=== PATIENT | female | born 1970 | race Caucasian/White ===

== ENCOUNTER → 2019-02-17 | Outpatient (CLI) | payer BC, OTHER ==
[2015-09-12 19:50] VITALS: BP 114/75
[~2019-02-17] MED LIST: DEXT30CA6 PO; FLUO40CA9 PO; ZOLP5TAB PO
--- NOTE | 2019-02-17 10:04 | CARD ---
MR#: [id number] Date of Study: 02/17/2019 Ordering Physician: TRICIA LANG, Referring Physician: TRICIA LANG Tech: Kendra Nieto RDCS APPROVED REPORT EXAM: Two-dimensional and M-mode echocardiogram with Doppler and color Doppler. Other Information Quality : GoodHR: 64bpm Rhythm : NSR INDICATION Chest Pain 2D DIMENSIONS RVDd3.2 (2.9-3.5cm)Left Atrium(2D)3.0 (1.6-4.0cm) IVSd0.6 (0.7-1.1cm)Aortic Root(2D)2.8 (2.0-3.7cm) LVDd5.0 (3.9-5.9cm)LVOT Diameter2.0 (1.8-2.4cm) PWd0.9 (0.7-1.1cm)LVDs3.4 (2.5-4.0cm) FS (%) 32.9 %SV73.6 ml LVEF(%)61.1 (>50%) Aortic Valve AoV Peak Cory.96.1cm/sAoV VTI22.7cm AO Peak GR.3.7mmHgLVOT Peak Cory.86.9cm/s AO Mean GR.2mmHgAVA (VMAX)2.81cm2 STACY (VTI)2.80cm2 Mitral Valve MV E Qdfyyhnz01.8cm/sMV DECEL [id number] MV A Tbsbjxux48.5cm/sE/A Ratio1.9 MV A Aapmlzlj07bs Pulmonary Valve PV Peak Hyoucarx81.5cm/s LEFT VENTRICLE The left ventricle is normal size. There is normal left ventricular wall thickness. The left ventricu lar systolic function is normal and the ejection fraction is within normal range. The Ejection Fracti on is 55-60%. There is normal LV segmental wall motion. The left ventricular diastolic function and f illing is normal for age. RIGHT VENTRICLE The right ventricle is normal size. There is normal right ventricular wall thickness. The right ventr icular systolic function is normal. ATRIA The left atrium size is normal. The right atrium size is normal. The interatrial septum is intact wit h no evidence for an atrial septal defect or patent foramen ovale as noted on 2-D or Doppler imaging. AORTIC VALVE The aortic valve is normal in structure and function. The aortic valve is trileaflet. Doppler and Col or Flow revealed no significant aortic regurgitation. There is no significant aortic valvular stenosi s. There is no aortic valvular vegetation. MITRAL VALVE The mitral valve is normal in structure and function. There is no evidence of mitral valve prolapse. There is no mitral valve stenosis. Doppler and Color-flow revealed trace mitral regurgitation. TRICUSPID VALVE The tricuspid valve is normal in structure and function. Doppler and Color Flow revealed no tricuspid valve regurgitation noted. There is no tricuspid valve prolapse or vegetation. There is no tricuspid valve stenosis. PULMONIC VALVE The pulmonic valve is not well visualized. GREAT VESSELS The aortic root is normal in size. The ascending aorta is normal in size. The IVC is normal in size a nd collapses >50% with inspiration. PERICARDIAL EFFUSION There is no evidence of significant pericardial effusion. Critical Notification Critical Value: No <Conclusion> The left ventricular systolic function is normal and the ejection fraction is within normal range. T he Ejection Fraction is 55-60%. There is normal LV segmental wall motion. Signed by : Carrillo Rene, Electronically Approved : 02/17/2019 10:03:35
--- NOTE | 2019-02-17 12:58 | RAD ---
MR#: [id number] Date of Study: 02/17/2019 Ordering Physician: TRICIA LANG Referring Physician: ALVINA WALKER Tech: RT Richy Munoz) (N) APPROVED REPORT Test Type: Exercise Stress Nurse/Tech: Duarte Hawk RN Test Indications: chest pain Cardiac History: ashma, smoker Medications: See Electronic Medical Record Medical History: See Electronic Medical Record Resting ECG: SR Resting Heart Rate: 60 bpm Resting Blood Pressure: 106/68mmHg Pretest Chest Pain: None Nurse/Tech Notes lungs CTA, S1S2 Consent: The procedure was explained to the patient in lay terms. Informed consent was witnessed. Kiran eout was entered into [employer]. History and Stress Test performed by duarte Hawk RN Stress Symptoms No chest pain or symptoms. POST EXERCISE Reason for Termination: Reached target heart rate Target HR: 147 Max HR: 184 bpm 125% of Maximum Predicted HR: bpm Exercise duration: 8:20 min:sec, 3 Stage Exercise capacity: 10METs Max Blood Pressure: 130/60mmHg Blood Pressure response to exercise: Normal blood pressure response during stress. Heart Rate response to exercise: normal response Chest Pain: No. Arrhythmia: No. ST Change: No. INTERPRETATION Stress EKG Conclusion: Baseline EKG showed sinus rhythm. No ischemic changes at peak stress. No arr hythmias. Imaging Protocol IMAGE PROTOCOL: Rest Tc-99m/stress Tc-99m 1 day Rest: Stress: Viability: Radiopharm.Tc99m AyjhgcgphLy90o Sestamibi Dose10.3mCi 33mCi Duration 13min. 13min. Img Date 02/17/2019 02/17/2019 Inj-Img [id number]. 60min. Rest Admin Site:IV - Left AntecubitalAdministrator:RT Richy Munoz)(N) Stress Admin Site: IV - Left AntecubitalAdministrator: TREVIN Patel STRESS DATA End Diast. Vol.97.0mlLVEDV index BSA53.0ml End Syst. Vol.33.0mlLVESV index BSA18.0ml Myocardial Cgpd806.0gEject. Xtmkaggl72.0% Stress Scores Regional WT0.00Summed WT0.00 Regional WM0.00Summed WM5.00 Study quality was good. Left Ventricular size was Normal at Rest and Stress. Lung uptake was . Left Ventricular ejection fraction is 66%. The rest and stress images show normal perfusion, normal contraction and thickening. LV Perf. Quant 17 Seg. SSS0.00 17 Seg. SRS0.00 17 Seg. SDS0.00 Stress Defect Extent (% LAD)0.00Rest Defect Extent (% LAD)0.00Rev. Defect Extent (% LAD)0.00 Stress Defect Extent (% LCX) 0.00Rest Defect Extent (% LCX)0.00Rev. Defect Extent (% LCX)0.00 Stress Defect Extent (% RCA)0.00Rest Defect Extent (% RCA)0.00Rev. Defect Extent (% RCA)0.00 Stress Defect Extent (% MATA)0.00Rest Defect Extent (% MATA)0.00Rev. Defect Extent (% MATA)0.00 Conclusion 1. Treadmill exercise cardioisotope stress test did not show any evidence of ischemia or infarct. 2. Normal left ventricular systolic function with ejection fraction calculated at 66%. 3. Low risk for cardiac events. Signed by : Tricia Lang Electronically Approved : 02/17/2019 12:58:12
== END | disposition home or self-care (01) ==
LOC: NM 08:41
PROVIDERS: ATTEND Internal Medicine Cardiovascular Disease
DX: R07.9 Chest pain, unspecified (principal); J45.909 Unspecified asthma, uncomplicated; Z87.891 Personal history of nicotine dependence
CPT/HCPCS: 78452; 93017; 93306; A9500; 96376